=== PATIENT | male | born 1960 | race Caucasian/White ===

== ENCOUNTER → 2017-02-27 | Outpatient (CLI) | payer MEDICAID, SELFPAY ==
[2017-02-27 08:13] LABS: BASO % 0.7 % (0.0-1.0); EOS # 0.2 K/mm3 (0.0-0.50); LYMPH # 2.1 K/mm3 (1.5-4.5); LYMPH % 26.2 % (24.0-44.0); MEAN CORPUSCULAR HEMOGLOBIN 31.3 pg (27.0-33.0); MEAN CORPUSCULAR HGB CONC 32.7 g/dl (32.0-36.5); MEAN CORPUSCULAR VOLUME 95.8 fl (80.0-96.0); MONO # 0.4 K/mm3 (0.0-0.8); MONO % 5.7 % (0.0-5.0); NEUTROPHILS # 4.7 K/mm3 (1.8-7.7); NEUTROPHILS % 63.5 % (36.0-66.0); WHITE BLOOD COUNT 7.5 K/mm3 (4.0-10.0)
[2017-02-27 08:39] LABS: ALBUMIN 3.5 GM/DL (3.2-5.2); ALBUMIN/GLOBULIN RATIO 1.13 (1.00-1.93); ALKALINE PHOSPHATASE 78 U/L (45-117); ALT/SGPT 15 U/L (12-78); ANION GAP 6 MEQ/L (8-16); AST/SGOT 11 U/L (15-37); BILIRUBIN,TOTAL 0.4 MG/DL (0.2-1.0); BLOOD UREA NITROGEN 15 MG/DL (7-18); CALCIUM LEVEL 8.4 MG/DL (8.5-10.1); CARBON DIOXIDE LEVEL 30 MEQ/L (21-32); CHLORIDE LEVEL 104 MEQ/L (98-107); CHOLESTEROL LEVEL 151 MG/DL (<200); CREATININE FOR GFR 1.05 MG/DL (0.70-1.30); GLOMERULAR FILTRATION RATE > 60.0 (>56); GLUCOSE, FASTING 92 MG/DL (70-105); POTASSIUM SERUM 4.6 MEQ/L (3.5-5.1); SODIUM LEVEL 140 MEQ/L (136-145); TOTAL PROTEIN 6.6 GM/DL (6.4-8.2); TRIGLYCERIDES LEVEL 72 MG/DL (<150)
--- NOTE | 2017-02-27 12:40 | REP ---
CAROTID ULTRASOUND: Real-time ultrasound evaluation and duplex Doppler interrogation of the extracranial carotid vasculature is performed. There is mild to moderate plaquing and narrowing in both carotid bulbs extending into the internal and external carotid arteries. Luminal narrowing is less than 50%. There is no evidence of hemodynamically significant stenosis of either internal carotid artery. Normal flow velocities are seen. The vertebral arteries demonstrate normal direction of flow. RIGHT LEFT Peak systolic velocity ICA 86.4 cm/s 60 cm/s End diastolic velocity ICA 36 cm/s 22.5 cm/s Peak systolic velocity CCA 79.2 cm/s 96.4 cm/s Peak systolic velocity ECA 70.1 cm/s 100.9 cm/s ICA/CCA ratio 1.09 0.62 IMPRESSION: Bilateral luminal narrowing of the internal carotid arteries less than 50%. No evidence of hemodynamically significant stenosis. Signed by Fitz Corley MD 02/27/2017 12:31 P
== END ==
LOC: M LAB 07:26
PROVIDERS: ATTEND Physician Assistant Medical
DX: I10 Essential (primary) hypertension (principal); R01.1 Cardiac murmur, unspecified

== ENCOUNTER → 2017-04-07 | Outpatient (CLI) | payer OTHER | LOC: M ADAMS 09:10 | PROVIDERS: ATTEND Physician Assistant Medical | DX: I10 Essential (primary) hypertension (principal) ==

== ENCOUNTER → 2017-04-07 | Outpatient (CLI) | payer OTHER ==
[2017-04-07 13:20] LABS: ANION GAP 5 MEQ/L (8-16); BLOOD UREA NITROGEN 11 MG/DL (7-18); CALCIUM LEVEL 8.6 MG/DL (8.5-10.1); CARBON DIOXIDE LEVEL 32 MEQ/L (21-32); CHLORIDE LEVEL 104 MEQ/L (98-107); CREATININE FOR GFR 0.95 MG/DL (0.70-1.30); GLOMERULAR FILTRATION RATE > 60.0 (>56); GLUCOSE, FASTING 85 MG/DL (70-105); POTASSIUM SERUM 4.5 MEQ/L (3.5-5.1); SODIUM LEVEL 141 MEQ/L (136-145)
== END ==
LOC: M ADAMS 09:10
PROVIDERS: ATTEND Physician Assistant Medical
DX: I10 Essential (primary) hypertension (principal)

== ENCOUNTER → 2017-07-04 | Outpatient (REF) | payer OTHER ==
[2017-07-04 13:13] LABS: BASO % 0.3 % (0.0-1.0); EOS # 0.1 K/mm3 (0.0-0.50); EOS % 0.7 % (0.0-3.0); LYMPH # 1.7 K/mm3 (1.5-4.5); LYMPH % 11.5 % (24.0-44.0); MEAN CORPUSCULAR HEMOGLOBIN 31.9 pg (27.0-33.0); MEAN CORPUSCULAR HGB CONC 33.3 g/dl (32.0-36.5); MEAN CORPUSCULAR VOLUME 95.9 fl (80.0-96.0); MONO # 0.7 K/mm3 (0.0-0.8); MONO % 4.8 % (0.0-5.0); NEUTROPHILS # 11.5 K/mm3 (1.8-7.7); RED CELL DISTRIBUTION WIDTH 13.4 % (11.5-14.5); WHITE BLOOD COUNT 14.1 K/mm3 (4.0-10.0)
[2017-07-04 13:28] LABS: ALBUMIN 3.9 GM/DL (3.2-5.2); ALKALINE PHOSPHATASE 57 U/L (45-117); ALT/SGPT 21 U/L (12-78); ANION GAP 8 MEQ/L (8-16); AST/SGOT 9 U/L (15-37); BILIRUBIN,TOTAL 1.2 MG/DL (0.2-1.0); BLOOD UREA NITROGEN 19 MG/DL (7-18); CALCIUM LEVEL 8.7 MG/DL (8.5-10.1); CARBON DIOXIDE LEVEL 30 MEQ/L (21-32); CHLORIDE LEVEL 103 MEQ/L (98-107); CHOLESTEROL LEVEL 148 MG/DL (<200); CREATININE FOR GFR 1.04 MG/DL (0.70-1.30); GLOMERULAR FILTRATION RATE > 60.0 (>56); GLUCOSE, FASTING 87 MG/DL (70-105); POTASSIUM SERUM 4.7 MEQ/L (3.5-5.1); SODIUM LEVEL 141 MEQ/L (136-145); TOTAL PROTEIN 6.9 GM/DL (6.4-8.2); TRIGLYCERIDES LEVEL 75 MG/DL (<150)
== END ==
LOC: M LABDRWAD 12:19
PROVIDERS: ATTEND Physician Assistant Medical
DX: R73.9 Hyperglycemia, unspecified (principal)

== ENCOUNTER → 2018-03-12 | Outpatient (CLI) | payer OTHER | LOC: M RAD 07:36 | DX: R10.13 Epigastric pain (principal) | CPT/HCPCS: 76705 ==

== ENCOUNTER 2018-10-11 13:27 | Emergency (ER) | payer MEDICAID, OTHER ==
[~2018-10-11] VITALS: Ht 165.1 cm; Wt 68.2 kg
[2018-10-11] MEDS ORDERED: KETOROLAC 60 MG/2 ML VIAL (J1885) IM ONE (14:30)
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
[2018-10-11] MEDS ORDERED: CYCL10TA PO (15:32)
[2018-10-11] MEDS ORDERED: NAPR-49 PO (15:32)
[2018-10-11 15:40] VITALS: BP 173/94
== END 2018-10-11 15:42 | disposition home or self-care (01) ==
LOC: M ED 13:27
DX: S60.221A Contusion of right hand, initial encounter (principal); S40.011A Contusion of right shoulder, initial encounter; S16.1XXA Strain of muscle, fascia and tendon at neck level, initial encounter; S29.012A Strain of muscle and tendon of back wall of thorax, initial encounter; S39.012A Strain of muscle, fascia and tendon of lower back, initial encounter; W01.0XXA Fall on same level from slipping, tripping and stumbling without subsequent striking against object, initial encounter; Y92.410 Unspecified street and highway as the place of occurrence of the external cause
CPT/HCPCS: 72125; 72128; 72131; 73030; 73130; 96372; 99284; J1885

== ENCOUNTER 2019-03-02 10:08 | Emergency (ER) | payer OTHER ==
[~2019-03-02] VITALS: Ht 165.1 cm; Wt 68.2 kg
[~2019-03-02 10:08] MED LIST: CYCL10TA PO; NAPR-837 PO
[2019-03-02 11:21] LABS: BASO % 0.5 % (0.0-1.0); EOS # 0.1 10^3/uL (0.0-0.50); HEMATOCRIT 44.3 % (42.0-52.0); HEMOGLOBIN 14.9 g/dl (13.5-17.5); LYMPH # 3.2 10^3/uL (1.5-4.5); LYMPH % 39.8 % (24.0-44.0); MEAN CORPUSCULAR HGB CONC 33.6 g/dl (32.0-36.5); MEAN CORPUSCULAR VOLUME 95.1 fl (80.0-96.0); MONO # 0.6 10^3/uL (0.0-0.8); MONO % 7.3 % (0.0-5.0); NEUTROPHILS # 4.1 10^3/uL (1.8-7.7); NEUTROPHILS % 51.2 % (36.0-66.0); PLATELET COUNT, AUTOMATED 317 10^3/uL (150-450); RED BLOOD COUNT 4.66 10^6/uL (4.30-6.10); WHITE BLOOD COUNT 8.1 10^3/uL (4.0-10.0)
--- NOTE | 2019-03-02 11:39 | REP ---
CT of the abdomen pelvis without IV or bowel contrast for flank pain: There are no comparisons. The visualized lung luna are unremarkable. The unenhanced hepatic parenchyma, gallbladder, pancreas and spleen are normal size and unremarkable. The adrenals are unremarkable. There are no renal calculi. There is no hydronephrosis. There is no perinephric stranding. There are no ureteral calculi. No hydroureter. There are no bladder calculi. There is calcified atheroma in the abdominal aorta, celiac artery and superior mesenteric artery. There is no retroperitoneal adenopathy or mass. There is no bowel distension or obstruction. The mesentery is unremarkable. Pelvis: The appendix is unremarkable. The bladder is unremarkable. There is no ascites or adenopathy. The pelvic bowel loops are unremarkable. There is bilateral L5 spondylolysis without spondylolisthesis. There is moderate degenerative disc disease throughout the lumbar spine. Impression: There is no hydronephrosis or perinephric stranding. There are no renal, ureteral or bladder calculi. The study is insensitive for renal masses in the absence of IV contrast. There is calcified atheroma in the abdominal aorta, celiac artery, superior mesenteric artery, iliac arteries and femoral arteries. There is bilateral L5 spondylolysis without spondylolisthesis. There is moderate degenerative disc disease throughout the lumbar spine. Electronically Signed by Fitz Rdz MD 03/02/2019 11:31 A
[2019-03-02 11:52] LABS: ALBUMIN 4.3 GM/DL (3.2-5.2); ALT/SGPT 33 U/L (12-78); BILIRUBIN,TOTAL 0.4 MG/DL (0.2-1.0); BLOOD UREA NITROGEN 11 MG/DL (7-18); CALCIUM LEVEL 9.1 MG/DL (8.5-10.1); CARBON DIOXIDE LEVEL 32 MEQ/L (21-32); CHLORIDE LEVEL 104 MEQ/L (98-107); CREATININE FOR GFR 0.97 MG/DL (0.70-1.30); GLOMERULAR FILTRATION RATE > 60.0 (>56); GLUCOSE, FASTING 103 MG/DL (70-100); LIPASE 132 U/L (73-393); POTASSIUM SERUM 3.9 MEQ/L (3.5-5.1); SODIUM LEVEL 140 MEQ/L (136-145); TOTAL PROTEIN 7.8 GM/DL (6.4-8.2)
[2019-03-02] MEDS ORDERED: ZANA4TAB PO (12:08)
[2019-03-02] MEDS ORDERED: MOBI4TAB PO (12:08)
[2019-03-02 12:12] VITALS: BP 170/92
== END 2019-03-02 12:18 | disposition home or self-care (01) ==
LOC: M ED 10:08
DX: I70.90 Unspecified atherosclerosis (principal); M51.36 Other intervertebral disc degeneration, lumbar region; M43.06 Spondylolysis, lumbar region

== ENCOUNTER → 2020-05-08 | Outpatient (CLI) | payer SELFPAY ==
[~2020-05-08] MED LIST changes: +CYCL-707 PO; -CYCL10TA PO; +MOBI4TAB PO; +ZANA4TAB PO
== END ==
LOC: M LABSMTC 14:03
PROVIDERS: ATTEND Pediatrics
DX: Z20.828 Contact with and (suspected) exposure to other viral communicable diseases (principal); Z11.59 Encounter for screening for other viral diseases

== ENCOUNTER 2020-11-18 07:05 | Emergency (ER) | payer OTHER ==
[~2020-11-18] VITALS: Ht 165.1 cm; Wt 69.4 kg
--- OUTSIDE RECORDS SUMMARY | 2020-11-18 07:12 | CCD ---
Author Author [facility] Address Unknown Phone Unavailable Support Name Relationship Address Phone UNEMPLOYED Next Of Kin Unknown UE Next Of Kin Unknown Unavailable DISABLED Next Of Kin Unknown Unavailable Becky AC Next Of Kin [address] [place] [address] [place] ECON [address] [place] [address] Unavailable Re-disclosure Warning The records that you are about to access may contain information from federally-assisted alcohol or drug abuse programs. If such information is present, then the following federally mandated warning applies: This information has been disclosed to you from records protected by federal confidentiality rules (42 CFR part 2). The federal rules prohibit you from making any further disclosure of this information unless further disclosure is expressly permitted by the written consent of the person to whom it pertains or as otherwise permitted by 42 CFR part 2. A general authorization for the release of medical or other information is NOT sufficient for this purpose. The Federal rules restrict any use of the information to criminally investigate or prosecute any alcohol or drug abuse patient.The records that you are about to access may contain highly sensitive health information, the redisclosure of which is protected by Article 27-F of the [facility] Public Health law. If you continue you may have access to information: Regarding HIV / AIDS; Provided by facilities licensed or operated by the [facility] Office of Mental Health; or Provided by the [facility] Office for People With Developmental Disabilities. If such information is present, then the following [facility] mandated warning applies: This information has been disclosed to you from confidential records which are protected by state law. State law prohibits you from making any further disclosure of this information without the specific written consent of the person to whom it pertains, or as otherwise permitted by law. Any unauthorized further disclosure in violation of state law may result in a fine or fci sentence or both. A general authorization for the release of medical or other information is NOT sufficient authorization for further disc losure. Insurance Providers Payer name Policy type / Coverage type Policy ID Covered constitution party ID Covered constitution party's relationship to lechuga Policy Lechuga Plan Information SELF PAY ONLY [id number] SP [id number] [facility] PLAN [facility] [id number] [facility]-Medicaid [id number] [facility]-Medicaid [id number] [facility] COMMUNITY PLAN [facility] [id number] SP [id number] [facility]-Medicaid [id number] [facility]-Medicaid [id number] [facility]) O [id number] S [id number] MEDICAID [id number] SP [id number] [facility] PLAN [facility] [id number] SP [id number] [employer] [facility]([facility]) O [id number] S [id number] MEDICAID M [id number] S [id number] SELF PAY UNAVAILABLE SP UNAVAILA BLE MEDICAID [id number] SP [id number] Results ID Date Data Source [id number] 05/08/2020 12:00:00 AM EDT [facility] Name Value Range Interpretation Code Description Data Opal rce(s) Supporting Document(s) 2019-nCoV RNA XXX AVRIL+probe-Imp [facility] This lab was ordered by [facility] and reported by [email or web address] Procedure
[2020-11-18] MEDS ORDERED: MORPHINE 2 MG/ML 1ML VIAL (J2270) IV ONE (07:30)
[2020-11-18] MEDS ORDERED: NORCO, ANEXSIA 5/325MG TABLET (HYDROcodone/ACETAMINOPHEN) PO ONE (07:45)
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
--- NOTE | 2020-11-18 09:05 | REP ---
INDICATION: left flank pain COMPARISON: Comparison CT study March 02, 2019.. TECHNIQUE: Helical scanning is acquired in 4 mm axial images were reformatted. Coronal and sagittal MPR images were generated and reviewed. FINDINGS: Digital preliminary reconditioner radiograph shows moderate stool in the right colon. Some vascular calcification is noted. The lung bases are clear on axial CT images. The liver and spleen are normal in size homogeneous in texture. Normal adrenal glands are observed. No abnormality is visible in the pancreas. The gallbladder is unremarkable. There is heavy vascular calcification in the aorta and its branches. No hydronephrosis or intrarenal calculus is seen on either side. No ureteral stone or bladder calculus is observed. A normal appendix is seen in the right pelvis along the pelvic sidewall. No CT evidence of appendicitis. Prostate contains a few dystrophic calcifications. There are vas deferens calcifications noted bilaterally. There are few loops of air-filled small bowel in the central abdomen. No obstructive lesion is seen. Moderate stool is seen throughout the proximal colon. No abdominal wall defect is seen. No abnormal fluid collection or free air is observed. Bilateral L5 spondylolysis is again seen without significant spondylolisthesis. No bony destructive lesion. IMPRESSION: Moderate colonic stool in the proximal colon. Extensive vascular calcification. Nonspecific small bowel loops. No evidence of obstruction. Normal appendix. No hydronephrosis or urinary tract calculus seen. <Electronically signed by Trung Damon > 11/18/20 0901
[2020-11-18] MEDS ORDERED: LIDO5DIS41 TOP (09:23)
[2020-11-18] MEDS ORDERED: HYDR-4571 PO (09:23)
--- OUTSIDE RECORDS SUMMARY | 2020-11-18 09:40 | CCD ---
Author Author [facility] Organization [facility] Address Unknown Phone Unavailable Support Name Relationship Address Phone [facility] Next Of Kin [place] [phone] UNEMPLOYED Next Of Kin Unknown UE Next Of Kin Unknown Unavailable DISABLED Next Of Kin Unknown Unavailable Becky AC Next Of Kin [address] [place] [address] [place] ECON [address] [place] [address] Unavailable Re-disclosure Warning The records that you [...] is protected by Article 27-F of the [facility] Public Health law. If you continue you may have access to information: Regarding HIV / AIDS; Provided by facilities licensed or operated by the [facility] Office of Mental Health; or Provided by the [facility] Office for People With Developmental Disabilities. If such information is present, then the following [facility] mandated warning applies: This information has been [...] law may result in a fine or residential sentence or both. A general authorization for the release of medical or other information is NOT sufficient authorization for further disc losure. Insurance Providers Payer name Policy type / Coverage type Policy ID Covered green party ID Covered green party's relationship to lechuga Policy Lechuga Plan Information [facility] COMMUN[facility] PLAN [facility] [id number] SP [id number] SELF PAY ONLY [id number] SP [id number] PLAN [facility] [id number] SP [id number] [facility]-Medicaid [id number] [facility]-Medicaid [id number] [facility] PLAN [facility] [id number] SP [id number] [facility]-Medicaid [id number] [facility]-Medicaid [id number] [facility] O [id number] S [id number] MEDICAID [id number] SP [id number] [facility] PLAN [facility] [id number] SP [id number] [facility] O [id number] S [id number] MEDICAID M [id number] S [id number] SELF PAY UNAVAILABLE SP UNAVAILA BLE MEDICAID [id number] SP [id number] Results ID Date Data Source [id number] 05/08/2020 12:00:00 AM EDT [facility] Name Value Range Interpretation Code Description Data Opal rce(s) Supporting Document(s) 2019-nCoV RNA XXX AVRIL+probe-Imp [facility] This lab was ordered by [facility] and reported by [employer] Procedure
[2020-11-18 09:42] VITALS: BP 145/98
== END 2020-11-18 09:43 | disposition home or self-care (01) ==
LOC: M ED 07:05
DX: S20.229A Contusion of unspecified back wall of thorax, initial encounter (principal); W01.0XXA Fall on same level from slipping, tripping and stumbling without subsequent striking against object, initial encounter; Y92.89 Other specified places as the place of occurrence of the external cause

== ENCOUNTER 2021-01-03 10:51 | Emergency (ER) | payer OTHER ==
[~2021-01-03] VITALS: Ht 165.1 cm; Wt 68.1 kg
[~2021-01-03 10:51] MED LIST changes: +HYDR-4571 PO; +LIDO5DIS41 TOP
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
[2021-01-03] MEDS ORDERED: KETOROLAC TROMETHAMINE 10 MG TAB PO ONE (12:30)
[2021-01-03] MEDS ORDERED: methocarbamoL 750 MG TAB PO ONE (12:30)
[2021-01-03 12:55] VITALS: BP 153/88
[2021-01-03] MEDS ORDERED: KETO10TAB PO (13:20)
[2021-01-03] MEDS ORDERED: ROBA750T4 PO (13:20)
== END 2021-01-03 13:33 | disposition home or self-care (01) ==
LOC: M ED 10:51
DX: S13.4XXA Sprain of ligaments of cervical spine, initial encounter (principal); S23.3XXA Sprain of ligaments of thoracic spine, initial encounter; S20.213A Contusion of bilateral front wall of thorax, initial encounter; V49.49XA Driver injured in collision with other motor vehicles in traffic accident, initial encounter; Y92.410 Unspecified street and highway as the place of occurrence of the external cause

== ENCOUNTER 2021-01-05 10:39 | Emergency (ER) | payer OTHER ==
[~2021-01-05] VITALS: Ht 139.7 cm; Wt 68.2 kg
[~2021-01-05 10:39] MED LIST changes: +KETO10TAB PO; +ROBA750T4 PO
[2021-01-05] MEDS ORDERED: MORPHINE 2 MG/ML 1ML VIAL (J2270) IV ONE (11:35)
[2021-01-05] MEDS ORDERED: ONDANSETRON 4MG/2ML VIAL IV ONE (11:35)
[2021-01-05 11:50] LABS: BASO # 0.1 10^3/uL (0.0-0.2); EOS # 0.1 10^3/uL (0.0-0.5); EOS % 1.4 % (0.0-3.0); HEMATOCRIT 41.3 % (42.0-52.0); HEMOGLOBIN 13.5 g/dl (13.5-17.5); LYMPH # 1.9 10^3/uL (1.5-5.0); LYMPH % 33.1 % (24.0-44.0); MEAN CORPUSCULAR HEMOGLOBIN 31.4 pg (27.0-33.0); MEAN CORPUSCULAR HGB CONC 32.7 g/dl (32.0-36.5); MONO # 0.5 10^3/uL (0.0-0.8); MONO % 8.2 % (2.0-8.0); NEUTROPHILS # 3.3 10^3/uL (1.5-8.5); NEUTROPHILS % 56.1 % (36.0-66.0); PLATELET COUNT, AUTOMATED 313 10^3/uL (150-450); WHITE BLOOD COUNT 5.9 10^3/uL (4.0-10.0)
[2021-01-05] MEDS ORDERED: ISOVUE-370 76% 100ML VIAL As Ordered ONE (11:54)
[2021-01-05 12:52] LABS: BILIRUBIN,DIRECT 0.2 MG/DL (0.0-0.2); BILIRUBIN,TOTAL 0.7 MG/DL (0.2-1.0); TOTAL PROTEIN 6.7 GM/DL (6.4-8.2)
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
[2021-01-05] MEDS ORDERED: oxyCODONE 5MG TAB PO ONE (13:20)
[2021-01-05] MEDS ORDERED: OXYC-517 PO (14:23)
[2021-01-05 14:51] VITALS: BP 110/74
--- NOTE | 2021-01-07 07:58 | ECGEPIP ---
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
== END 2021-01-05 14:53 | disposition home or self-care (01) ==
LOC: M ED 10:39
DX: S20.219A Contusion of unspecified front wall of thorax, initial encounter (principal); V49.49XA Driver injured in collision with other motor vehicles in traffic accident, initial encounter; Y92.410 Unspecified street and highway as the place of occurrence of the external cause; K85.90 Acute pancreatitis without necrosis or infection, unspecified
CPT/HCPCS: 71275; 80047; 80076; 83615; 83690; 84484; 85025; 93005; 96374; 96375; 99284; J2270; J2405; Q9967

== ENCOUNTER → 2021-01-07 | Outpatient (CLI) | payer OTHER ==
[~2021-01-07] MED LIST changes: +HYDR-3713 PO; +OXYC-517 PO; +ZOFR4TAB16 PO
[2021-01-07 10:19] LABS: BASO % 0.5 % (0.0-1.0); EOS # 0.1 10^3/uL (0.0-0.5); EOS % 0.8 % (0.0-3.0); HEMATOCRIT 43.1 % (42.0-52.0); HEMOGLOBIN 13.9 g/dl (13.5-17.5); LYMPH # 2.4 10^3/uL (1.5-5.0); LYMPH % 31.9 % (24.0-44.0); MEAN CORPUSCULAR HGB CONC 32.3 g/dl (32.0-36.5); MEAN CORPUSCULAR VOLUME 96.2 fl (80.0-96.0); MONO # 0.5 10^3/uL (0.0-0.8); MONO % 6.2 % (2.0-8.0); NEUTROPHILS # 4.6 10^3/uL (1.5-8.5); NEUTROPHILS % 60.3 % (36.0-66.0); PLATELET COUNT, AUTOMATED 353 10^3/uL (150-450); RED BLOOD COUNT 4.48 10^6/uL (4.30-6.10); WHITE BLOOD COUNT 7.6 10^3/uL (4.0-10.0)
[2021-01-07 10:42] LABS: BILIRUBIN,DIRECT 0.2 MG/DL (0.0-0.2); BILIRUBIN,TOTAL 0.7 MG/DL (0.2-1.0)
== END ==
LOC: M LAB 09:41
PROVIDERS: ATTEND Emergency Medicine
DX: K85.90 Acute pancreatitis without necrosis or infection, unspecified (principal)

== ENCOUNTER 2021-01-09 12:05 | Emergency (ER) | payer OTHER ==
[~2021-01-09] VITALS: Ht 165.1 cm; Wt 68.2 kg
[~2021-01-09 12:05] MED LIST changes: -HYDR-3713 PO; -ZOFR4TAB16 PO
[2021-01-09 12:09] VITALS: BP 166/98
[2021-01-09 13:11] LABS: BASO # 0.1 10^3/uL (0.0-0.2); BASO % 0.6 % (0.0-1.0); EOS # 0.1 10^3/uL (0.0-0.5); EOS % 0.8 % (0.0-3.0); HEMATOCRIT 44.2 % (42.0-52.0); HEMOGLOBIN 14.8 g/dl (13.5-17.5); LYMPH # 2.4 10^3/uL (1.5-5.0); LYMPH % 28.4 % (24.0-44.0); MEAN CORPUSCULAR HGB CONC 33.5 g/dl (32.0-36.5); MEAN CORPUSCULAR VOLUME 95.7 fl (80.0-96.0); MONO # 0.6 10^3/uL (0.0-0.8); MONO % 6.8 % (2.0-8.0); NEUTROPHILS # 5.3 10^3/uL (1.5-8.5); NEUTROPHILS % 63.3 % (36.0-66.0); PLATELET COUNT, AUTOMATED 358 10^3/uL (150-450); RED BLOOD COUNT 4.62 10^6/uL (4.30-6.10); WHITE BLOOD COUNT 8.4 10^3/uL (4.0-10.0)
[2021-01-09 13:39] LABS: ALBUMIN 4.5 GM/DL (3.2-5.2); ALT/SGPT 27 U/L (12-78); BILIRUBIN,DIRECT 0.2 MG/DL (0.0-0.2); BILIRUBIN,TOTAL 0.7 MG/DL (0.2-1.0); BLOOD UREA NITROGEN 9 MG/DL (7-18); CALCIUM LEVEL 9.4 MG/DL (8.5-10.1); CARBON DIOXIDE LEVEL 30 MEQ/L (21-32); CHLORIDE LEVEL 104 MEQ/L (98-107); CREATININE FOR GFR 0.87 MG/DL (0.70-1.30); GLOMERULAR FILTRATION RATE > 60.0 (>56); GLUCOSE, FASTING 94 MG/DL (70-100); LIPASE 924 U/L (73-393); POTASSIUM SERUM 4.3 MEQ/L (3.5-5.1); SODIUM LEVEL 139 MEQ/L (136-145); TOTAL PROTEIN 7.5 GM/DL (6.4-8.2)
[2021-01-09] MEDS ORDERED: MORPHINE 4 MG/ML 1ML VIAL/SYRINGE (J2270) IV ONE (14:15)
[2021-01-09] MEDS ORDERED: NS 1,000 ML IV SCH (14:15)
[2021-01-09] MEDS ORDERED: ONDANSETRON 4MG/2ML VIAL IV ONE (14:15)
[2021-01-09] MEDS ORDERED: ISOVUE-370 76% 100ML VIAL As Ordered ONE (14:18)
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
[2021-01-09] MEDS ORDERED: HYDR-3713 PO (16:03)
[2021-01-09] MEDS ORDERED: ZOFR4TAB16 PO (16:03)
--- NOTE | 2021-01-09 20:09 | ECGEPIP ---
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
== END 2021-01-09 16:28 | disposition home or self-care (01) ==
LOC: M ED 12:05
DX: K85.90 Acute pancreatitis without necrosis or infection, unspecified (principal); F17.210 Nicotine dependence, cigarettes, uncomplicated
CPT/HCPCS: 36415; 74177; 80048; 80076; 83690; 85025; 93005; 96361; 96374; 96375; 99284; J2270; J2405; Q9967

== ENCOUNTER → 2021-02-23 | Outpatient (CLI) | payer OTHER ==
[~2021-02-23] MED LIST changes: +HYDR-3713 PO; +ZOFR4TAB16 PO
--- NOTE | 2021-02-23 20:01 | REPVR ---
PROCEDURE INFORMATION: Exam: MR Cervical Spine Without Contrast Exam date and time: 02/23/2021 7:10 PM Age: 60 years old Clinical indication: Neck pain; Additional info: Radiculopathy, cervical region TECHNIQUE: Imaging protocol: Multiplanar magnetic resonance images of the cervical spine without contrast. COMPARISON: 1. CT Spine,cervical w/o contrast 01/03/2021 11:[address] Spine,cervical w/o contrast 10/11/2018 2:27:55 PM FINDINGS: Vertebrae: The alignment of the cervical spine is within normal limits. There is no acute fracture or subluxation. 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 The vertebral body heights are preserved. The bone marrow signal is unremarkable. Spinal cord: Normal. No cord compression. No spinal cord edema or hemorrhage. Spinal epidural space: There is no abnormal epidural fluid collection. Diffuse disc desiccation is present in the cervical spine. C2-C3: The disc height is preserved. No disc herniation, spinal canal stenosis, or neural foraminal stenosis is noted. There is mild osteoarthritis of the facet joints. C3-C4: The disc height is preserved. No disc herniation, spinal canal stenosis, or neural foraminal stenosis is noted. The facet joints are unremarkable. C4-C5: The disc height is preserved. There is a mild central protrusion, fissuring of the anterior and posterior portions of the annulus fibrosus, and endplate spurs projecting anteriorly. The spinal canal and neural foramina are patent. The facet joints are unremarkable. C5-C6: There is mild loss of disc height, a broad-based posterior disc osteophyte complex, left uncovertebral hypertrophy, and endplate spurs projecting anteriorly. There is mild spinal canal stenosis and moderate to severe left neural foraminal stenosis. No right neural foraminal stenosis is noted. The facet joints are unremarkable. C6-C7: There is mild loss of disc height, a broad-based posterior disc osteophyte complex, left uncovertebral hypertrophy, and endplate spurs projecting anteriorly. There is moderate to severe left neural foraminal stenosis. No spinal canal or right neural foraminal stenosis is noted. The facet joints are unremarkable. C7-T1: The disc height is preserved. No disc herniation, spinal canal stenosis, or neural foraminal stenosis is noted. There is moderate osteoarthritis of the left facet joint. T1-T2: Axial imaging was not performed at this level. The disc height is preserved. No disc herniation, spinal canal stenosis, or neural foraminal stenosis is noted. The facet joints are unremarkable. T2-T3: Axial imaging was not performed at this level. The disc height is preserved. No disc herniation, spinal canal stenosis, or neural foraminal stenosis is noted. The facet joints are unremarkable. Soft tissues: Unremarkable. No ligamentous sprain or muscular strain. No paraspinal soft tissue fluid collection. Vertebral arteries: Expected flow voids in the vertebral arteries. IMPRESSION: 1. C2-C3: Mild osteoarthritis of the facet joints. 2. C4-C5: Mild central protrusion, fissuring of the anterior and posterior portions of the annulus fibrosus, and endplate spurs projecting anteriorly. 3. C5-C6: Mild spinal canal stenosis and moderate to severe left neural foraminal stenosis, where there is mild loss of disc height, a broad-based posterior disc osteophyte complex, left uncovertebral hypertrophy, and endplate spurs projecting anteriorly. 4. C6-C7: Moderate to severe left neural foraminal stenosis, where there is mild loss of disc height, a broad-based posterior disc osteophyte complex, left uncovertebral hypertrophy, and endplate spurs projecting anteriorly. 5. C7-T1: Moderate osteoarthritis of the left facet joint. 6. 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 Electronically signed by: Ánegl Emanuel On 02/23/2021 20:01:26 PM
== END ==
LOC: M RAD 17:58
PROVIDERS: ATTEND Orthopaedic Surgery Sports Medicine
DX: M54.12 Radiculopathy, cervical region (principal)

== ENCOUNTER → 2021-04-27 | Outpatient (REF) | payer OTHER ==
[2021-04-27 13:05] LABS: BASO # 0.1 10^3/uL (0.0-0.2); BASO % 0.7 % (0.0-1.0); EOS # 0.1 10^3/uL (0.0-0.5); EOS % 1.4 % (0.0-3.0); HEMATOCRIT 44.4 % (42.0-52.0); HEMOGLOBIN 14.6 g/dl (13.5-17.5); LYMPH # 2.2 10^3/uL (1.5-5.0); LYMPH % 30.5 % (24.0-44.0); MEAN CORPUSCULAR HEMOGLOBIN 30.9 pg (27.0-33.0); MEAN CORPUSCULAR HGB CONC 32.9 g/dl (32.0-36.5); MEAN CORPUSCULAR VOLUME 94.1 fl (80.0-96.0); MONO # 0.5 10^3/uL (0.0-0.8); MONO % 6.9 % (2.0-8.0); NEUTROPHILS # 4.3 10^3/uL (1.5-8.5); NEUTROPHILS % 60.2 % (36.0-66.0); PLATELET COUNT, AUTOMATED 326 10^3/uL (150-450); RED BLOOD COUNT 4.72 10^6/uL (4.30-6.10); WHITE BLOOD COUNT 7.1 10^3/uL (4.0-10.0)
[2021-04-27 13:45] LABS: ALBUMIN 4.2 GM/DL (3.2-5.2); ALT/SGPT 25 U/L (12-78); BILIRUBIN,TOTAL 0.8 MG/DL (0.2-1.0); BLOOD UREA NITROGEN 8 MG/DL (7-18); CALCIUM LEVEL 9.5 MG/DL (8.5-10.1); CARBON DIOXIDE LEVEL 28 MEQ/L (21-32); CHLORIDE LEVEL 106 MEQ/L (98-107); CHOLESTEROL LEVEL 219 MG/DL (<200); CHOLESTEROL RISK RATIO 4.294 (<5); CREATININE FOR GFR 0.98 MG/DL (0.70-1.30); GLOMERULAR FILTRATION RATE > 60.0 (>56); GLUCOSE, FASTING 102 MG/DL (70-100); HDL CHOLESTEROL 51 MG/DL (>40); LDL CHOLESTEROL 148 MG/DL (<100); NON-HDL-C 168 MG/DL; POTASSIUM SERUM 4.6 MEQ/L (3.5-5.1); SODIUM LEVEL 141 MEQ/L (136-145); THYROID STIMULATING HORMONE 0.978 uIU/ML (0.358-3.740); TOTAL PROTEIN 7.3 GM/DL (6.4-8.2); TRIGLYCERIDES LEVEL 98 MG/DL (<150)
== END ==
LOC: M SFHCADAM 10:28
PROVIDERS: ATTEND Physician Assistant Medical
DX: R55 Syncope and collapse (principal); I10 Essential (primary) hypertension; I73.9 Peripheral vascular disease, unspecified

== ENCOUNTER → 2021-05-10 | Outpatient (CLI) | payer MEDICAID, OTHER ==
--- NOTE | 2021-05-10 17:23 | REPVR ---
PROCEDURE INFORMATION: Exam: MR Head Without Contrast Exam date and time: 05/10/2021 9:14 AM Age: 60 years old Clinical indication: Syncope and collapse TECHNIQUE: Imaging protocol: MR of the head without contrast. COMPARISON: CT Head without contrast 01/03/2021 11:35 AM FINDINGS: Brain: Small scattered nonspecific T2/FLAIR hyperintensities of the periventricular and deep subcortical white matter, most likely secondary to chronic small vessel ischemic change. No intracranial hemorrhage or extra-axial fluid collection. No evidence of mass effect or midline shift. No restricted diffusion to suggest acute infarct. Cerebral ventricles: Normal. No ventriculomegaly. Bones/joints: Unremarkable. Paranasal sinuses: Normal as visualized. No acute sinusitis. Mastoid air cells: No mastoid effusion. Orbital cavity: Unremarkable. Soft tissues: Unremarkable. IMPRESSION: 1. No acute intracranial pathology. 2. Chronic findings, as above. Electronically signed by: Mikie Malhotra On 05/10/2021 17:23:22 PM
== END ==
LOC: M PLAIMG 08:33
PROVIDERS: ATTEND Physician Assistant Medical
DX: R93.0 Abnormal findings on diagnostic imaging of skull and head, not elsewhere classified (principal); R55 Syncope and collapse

== ENCOUNTER → 2022-11-08 | Outpatient (REF) | payer MEDICAID, OTHER ==
[2022-11-08 12:53] LABS: BASO % 0.6 % (0.0-1.0); EOS # 0.1 10^3/uL (0.0-0.5); HEMATOCRIT 41.5 % (42.0-52.0); HEMOGLOBIN 13.6 g/dl (13.5-17.5); LYMPH # 1.8 10^3/uL (1.5-5.0); LYMPH % 27.1 % (24.0-44.0); MEAN CORPUSCULAR HEMOGLOBIN 31.9 pg (27.0-33.0); MEAN CORPUSCULAR HGB CONC 32.8 g/dl (32.0-36.5); MEAN CORPUSCULAR VOLUME 97.2 fl (80.0-96.0); MONO # 0.4 10^3/uL (0.0-0.8); MONO % 6.4 % (2.0-8.0); NEUTROPHILS # 4.3 10^3/uL (1.5-8.5); NEUTROPHILS % 64.6 % (36.0-66.0); PLATELET COUNT, AUTOMATED 308 10^3/uL (150-450); RED BLOOD COUNT 4.27 10^6/uL (4.30-6.10); WHITE BLOOD COUNT 6.7 10^3/uL (4.0-10.0)
[2022-11-08 13:07] LABS: HEMOGLOBIN A1c 5.6 % (4.0-6.0)
[2022-11-08 13:31] LABS: ALKALINE PHOSPHATASE 52 U/L (46-116); ALT/SGPT 22 U/L (7.0-40); AST/SGOT 20 U/L (<34); BILIRUBIN,TOTAL 0.8 MG/DL (0.3-1.2); BLOOD UREA NITROGEN 14 MG/DL (9-23); CALCIUM LEVEL 9.1 MG/DL (8.5-10.1); CARBON DIOXIDE LEVEL 29 MMOL/L (20-31); CHLORIDE LEVEL 103 MMOL/L (98-107); CHOLESTEROL LEVEL 165 MG/DL (<200); CHOLESTEROL RISK RATIO 3.26 (<5); GLOMERULAR FILTRATION RATE > 60.0 (>56); GLUCOSE, FASTING 98 MG/DL (60-100); HDL CHOLESTEROL 50.5 MG/DL (>40); LDL CHOLESTEROL 99.3 MG/DL (<100); NON-HDL-C 115 MG/DL; POTASSIUM SERUM 4.6 MMOL/L (3.5-5.1); SODIUM LEVEL 140 MMOL/L (136-145); TOTAL PROTEIN 6.7 G/DL (5.7-8.2); TRIGLYCERIDES LEVEL 76 MG/DL (<150)
[2022-11-08 13:32] LABS: FREE T4 1.02 NG/DL (0.89-1.76); THYROID STIMULATING HORMONE 0.628 uIU/ML (0.55-4.78); TOTAL 25(OH) VITAMIN D 30.9 NG/ML (20.0-100.0)
== END ==
LOC: M LAB REF 12:14
PROVIDERS: ATTEND Nurse Practitioner Family
DX: Z13.228 Encounter for screening for other metabolic disorders (principal); Z79.899 Other long term (current) drug therapy

== ENCOUNTER → 2022-12-10 | Outpatient (REF) | payer OTHER ==
[2022-12-10 17:44] LABS: BASO # 0.1 10^3/uL (0.0-0.2); BASO % 0.7 % (0.0-1.0); EOS # 0.1 10^3/uL (0.0-0.5); EOS % 1.6 % (0.0-3.0); HEMATOCRIT 42.8 % (42.0-52.0); LYMPH # 2.2 10^3/uL (1.5-5.0); LYMPH % 31.2 % (24.0-44.0); MEAN CORPUSCULAR HEMOGLOBIN 31.7 pg (27.0-33.0); MEAN CORPUSCULAR HGB CONC 32.7 g/dl (32.0-36.5); MEAN CORPUSCULAR VOLUME 96.8 fl (80.0-96.0); MONO # 0.6 10^3/uL (0.0-0.8); MONO % 8.2 % (2.0-8.0); PLATELET COUNT, AUTOMATED 303 10^3/uL (150-450); RED BLOOD COUNT 4.42 10^6/uL (4.30-6.10)
[2022-12-10 18:08] LABS: URIC ACID 3.3 MG/DL (3.7-9.2)
[2022-12-10 18:09] LABS: C REACTIVE PROTEIN QUANTITATIV < 0.40 MG/DL (<1.0)
[2022-12-10 18:11] LABS: RHEUMATOID FACTOR QUANT 4.6 IU/ML (<14)
[2022-12-10 18:27] LABS: ERYTHROCYTE SEDIMENTATION RATE 18 mm/hr (0-20)
[2022-12-10 18:48] LABS: ALKALINE PHOSPHATASE 54 U/L (46-116); ALT/SGPT 20 U/L (7.0-40); AST/SGOT 20 U/L (<34); BILIRUBIN,TOTAL 0.6 MG/DL (0.3-1.2); BLOOD UREA NITROGEN 16 MG/DL (9-23); CALCIUM LEVEL 8.6 MG/DL (8.5-10.1); CARBON DIOXIDE LEVEL 30 MMOL/L (20-31); CHLORIDE LEVEL 104 MMOL/L (98-107); GLUCOSE, FASTING 78 MG/DL (60-100); POTASSIUM SERUM 4.7 MMOL/L (3.5-5.1); SODIUM LEVEL 140 MMOL/L (136-145); TOTAL PROTEIN 6.6 G/DL (5.7-8.2)
[2022-12-10 20:05] LABS: CREATININE FOR GFR 0.82 MG/DL (0.70-1.30); GLOMERULAR FILTRATION RATE > 60.0 (>56)
== END ==
LOC: M LAB REF 16:57
PROVIDERS: ATTEND Nurse Practitioner Family
DX: M25.522 Pain in left elbow (principal)

== ENCOUNTER → 2022-12-21 | Outpatient (CLI) | payer OTHER | LOC: M RAD 14:02 | PROVIDERS: ATTEND Nurse Practitioner Family | DX: M19.041 Primary osteoarthritis, right hand (principal); M19.042 Primary osteoarthritis, left hand; M19.022 Primary osteoarthritis, left elbow ==

== ENCOUNTER → 2022-12-30 | Outpatient (REF) | payer OTHER ==
[2022-12-30 18:07] LABS: BASO % 0.6 % (0.0-1.0); EOS # 0.1 10^3/uL (0.0-0.5); EOS % 1.6 % (0.0-3.0); HEMATOCRIT 41.6 % (42.0-52.0); HEMOGLOBIN 13.7 g/dl (13.5-17.5); LYMPH # 2.1 10^3/uL (1.5-5.0); LYMPH % 31.7 % (24.0-44.0); MEAN CORPUSCULAR HEMOGLOBIN 31.5 pg (27.0-33.0); MEAN CORPUSCULAR HGB CONC 32.9 g/dl (32.0-36.5); MEAN CORPUSCULAR VOLUME 95.6 fl (80.0-96.0); MONO # 0.6 10^3/uL (0.0-0.8); MONO % 8.6 % (2.0-8.0); NEUTROPHILS # 3.9 10^3/uL (1.5-8.5); NEUTROPHILS % 57.5 % (36.0-66.0); PLATELET COUNT, AUTOMATED 303 10^3/uL (150-450); RED BLOOD COUNT 4.35 10^6/uL (4.30-6.10); WHITE BLOOD COUNT 6.7 10^3/uL (4.0-10.0)
[2022-12-30 18:39] LABS: LIPASE 46 U/L (12-53)
[2022-12-30 18:42] LABS: ALBUMIN 4.2 G/DL (3.2-5.2); ALKALINE PHOSPHATASE 52 U/L (46-116); ALT/SGPT 22 U/L (7.0-40); AST/SGOT 17 U/L (<34); BILIRUBIN,TOTAL 0.5 MG/DL (0.3-1.2); BLOOD UREA NITROGEN 16 MG/DL (9-23); CALCIUM LEVEL 9.2 MG/DL (8.3-10.6); CARBON DIOXIDE LEVEL 31 MMOL/L (20-31); CHLORIDE LEVEL 104 MMOL/L (98-107); CREATININE FOR GFR 0.87 MG/DL (0.70-1.30); GLOMERULAR FILTRATION RATE > 60.0 (>49); GLUCOSE, FASTING 87 MG/DL (74-106); POTASSIUM SERUM 4.7 MMOL/L (3.5-5.1); SODIUM LEVEL 140 MMOL/L (136-145); TOTAL PROTEIN 6.7 G/DL (5.7-8.2)
== END ==
LOC: M LAB REF 16:04
PROVIDERS: ATTEND Nurse Practitioner Family
DX: R10.9 Unspecified abdominal pain (principal)

== ENCOUNTER → 2023-01-15 | Outpatient (CLI) | payer OTHER ==
[~2023-01-15] MED LIST changes: +ISOVUE-370 76% 100ML VIAL As Ordered ONE
== END ==
LOC: M RAD 08:39
PROVIDERS: ATTEND Nurse Practitioner Family
DX: R10.9 Unspecified abdominal pain (principal)
CPT/HCPCS: 74174; Q9967

== ENCOUNTER → 2023-10-15 | Outpatient (REF) | payer OTHER ==
[~2023-10-15] MED LIST changes: -ISOVUE-370 76% 100ML VIAL As Ordered ONE
[2023-10-15 13:53] LABS: BASO % 0.4 % (0.0-1.0); EOS # 0.1 10^3/uL (0.0-0.5); HEMATOCRIT 43.4 % (42.0-52.0); HEMOGLOBIN 14.3 g/dl (13.5-17.5); LYMPH # 1.9 10^3/uL (1.5-5.0); LYMPH % 27.5 % (24.0-44.0); MEAN CORPUSCULAR HEMOGLOBIN 31.6 pg (27.0-33.0); MEAN CORPUSCULAR HGB CONC 32.9 g/dl (32.0-36.5); MEAN CORPUSCULAR VOLUME 95.8 fl (80.0-96.0); MONO # 0.6 10^3/uL (0.0-0.8); MONO % 8.5 % (2.0-8.0); NEUTROPHILS # 4.3 10^3/uL (1.5-8.5); NEUTROPHILS % 61.3 % (36.0-66.0); PLATELET COUNT, AUTOMATED 316 10^3/uL (150-450); RED BLOOD COUNT 4.53 10^6/uL (4.30-6.10); WHITE BLOOD COUNT 6.9 10^3/uL (4.0-10.0)
[2023-10-15 14:01] LABS: ALBUMIN 4.1 G/DL (3.2-5.2); ALKALINE PHOSPHATASE 68 U/L (46-116); ALT/SGPT 21 U/L (7.0-40); AST/SGOT 18 U/L (<34); BILIRUBIN,TOTAL 0.9 MG/DL (0.3-1.2); BLOOD UREA NITROGEN 12 MG/DL (9-23); CALCIUM LEVEL 9.4 MG/DL (8.3-10.6); CARBON DIOXIDE LEVEL 31 MMOL/L (20-31); CHLORIDE LEVEL 103 MMOL/L (98-107); CREATININE FOR GFR 0.89 MG/DL (0.70-1.30); GLOMERULAR FILTRATION RATE > 60.0 (>49); GLUCOSE, FASTING 90 MG/DL (74-106); POTASSIUM SERUM 4.5 MMOL/L (3.5-5.1); SODIUM LEVEL 140 MMOL/L (136-145); TOTAL PROTEIN 6.8 G/DL (5.7-8.2)
== END ==
LOC: M LAB REF 12:22
PROVIDERS: ATTEND Nurse Practitioner Family
DX: R10.9 Unspecified abdominal pain (principal)

== ENCOUNTER 2024-02-09 11:48 | Day surgery (SDC) | payer OTHER ==
[~2024-02-09] VITALS: Ht 165.1 cm; Wt 68.9 kg
[~2024-02-09 11:48] MED LIST changes: +LIDOCAINE 2% 100MG/5ML SDV (FOR ANES.) As Ordered ONE; +LISI10TA22 PO; +PANT40TA29 PO; +propofoL 200 MG/20 ML VIAL As Ordered ONE
[2024-02-09] MEDS: NS 1,000 ML IV ONE (12:32)
[2024-02-09] MEDS ORDERED: fentaNYL 100 MCG/2 ML INJECTION As Ordered ONE (12:38)
[2024-02-09 13:31] VITALS: TEMP 96.8
[2024-02-09 13:49] VITALS: BP 138/78; O2SAT 98
== END 2024-02-09 13:58 | disposition home or self-care (01) ==
LOC: M OPP 11:48
PROVIDERS: ATTEND Internal Medicine Gastroenterology
DX: Z12.11 Encounter for screening for malignant neoplasm of colon (principal); K63.5 Polyp of colon; K64.8 Other hemorrhoids; K22.89 Other specified disease of esophagus; R10.13 Epigastric pain; I10 Essential (primary) hypertension; Z87.891 Personal history of nicotine dependence; Z79.899 Other long term (current) drug therapy; Z91.048 Other nonmedicinal substance allergy status
CPT/HCPCS: 43239; 45385; 88305; J3010

== ENCOUNTER → 2024-09-21 | Outpatient (REF) | payer OTHER ==
[~2024-09-21] MED LIST changes: -LIDOCAINE 2% 100MG/5ML SDV (FOR ANES.) As Ordered ONE; -propofoL 200 MG/20 ML VIAL As Ordered ONE
[2024-09-21 13:47] LABS: BLOOD UREA NITROGEN 17 MG/DL (9-23); CALCIUM LEVEL 9.6 MG/DL (8.3-10.6); CARBON DIOXIDE LEVEL 30 MMOL/L (20-31); CHLORIDE LEVEL 104 MMOL/L (98-107); CHOLESTEROL LEVEL 188 MG/DL (<200); CHOLESTEROL RISK RATIO 4.23 (<5); CREATININE FOR GFR 0.91 MG/DL (0.70-1.30); GLOMERULAR FILTRATION RATE > 60.0 (>49); GLUCOSE, FASTING 143 MG/DL (74-106); HDL CHOLESTEROL 44.4 MG/DL (>40); LDL CHOLESTEROL 126.2 MG/DL (<100); NON-HDL-C 143.6 MG/DL; POTASSIUM SERUM 4.4 MMOL/L (3.5-5.1); SODIUM LEVEL 139 MMOL/L (136-145); TRIGLYCERIDES LEVEL 87 MG/DL (<150)
[2024-09-21 13:48] LABS: PSA SCREENING 1.77 NG/ML (< 4.00)
[2024-09-21 13:53] LABS: THYROID STIMULATING HORMONE 0.827 uIU/ML (0.55-4.78)
[2024-09-21 15:09] LABS: HEMOGLOBIN A1c 5.8 % (4.0-6.0)
== END ==
LOC: M LAB REF 12:19
PROVIDERS: ATTEND Nurse Practitioner Family
DX: Z12.5 Encounter for screening for malignant neoplasm of prostate (principal); Z13.6 Encounter for screening for cardiovascular disorders; Z13.228 Encounter for screening for other metabolic disorders; I10 Essential (primary) hypertension

== ENCOUNTER → 2024-10-01 | Outpatient (CLI) | payer BC | LOC: M RAD 12:51 | PROVIDERS: ATTEND Nurse Practitioner Family | DX: M54.16 Radiculopathy, lumbar region (principal) ==

== ENCOUNTER → 2024-10-05 | Outpatient (CLI) | payer BC, OTHER | LOC: M PLAIMG 08:11 | PROVIDERS: ATTEND Nurse Practitioner Family | DX: M54.16 Radiculopathy, lumbar region (principal) ==

== ENCOUNTER 2024-11-12 11:52 | Emergency (ER) | payer BC ==
[~2024-11-12] VITALS: Ht 165.1 cm; Wt 68.6 kg
[2024-11-12 11:56] VITALS: TEMP 99
[2024-11-12] MEDS ORDERED: TRAM50TA2 (12:23)
[2024-11-12] MEDS ORDERED: GABA-1171 (12:23)
[2024-11-12 15:00] VITALS: BP 128/80
[2024-11-12 15:07] VITALS: O2SAT 95
[2024-11-12] MEDS ORDERED: diazePAM 5MG TABLET PO ONE (15:45)
[2024-11-12] MEDS ORDERED: KETOROLAC 30 MG/ML 1ML VIAL IV ONE (15:45)
[2024-11-12] MEDS: ACETAMINOPHEN 500 MG TAB PO ONE (16:12)
[2024-11-12] MEDS: predniSONE 20 MG TAB PO ONE (16:12)
[2024-11-12] MEDS: LIDOCAINE 5% (LIDODERM) PATCH TD ONE (16:12)
[2024-11-12] MEDS: methocarbamoL 500 MG TAB PO ONE (16:12)
[2024-11-12] MEDS ORDERED: MEDR4PAK PO (17:07)
[2024-11-12] MEDS ORDERED: METH-1165 PO (17:07)
== END 2024-11-12 17:12 | disposition home or self-care (01) ==
LOC: M ED 11:52
DX: M54.42 Lumbago with sciatica, left side (principal); M51.360 Other intervertebral disc degeneration, lumbar region with discogenic back pain only; I10 Essential (primary) hypertension; F17.210 Nicotine dependence, cigarettes, uncomplicated; Z91.048 Other nonmedicinal substance allergy status; Z79.899 Other long term (current) drug therapy
CPT/HCPCS: 72110; 73502; 93971; 99284; J7512

== ENCOUNTER → 2024-11-30 | Outpatient (CLI) | payer BC ==
[~2024-11-30] MED LIST changes: +GABA-1171; +MEDR4PAK PO; +METH-1165 PO; +TRAM50TA2
== END ==
LOC: M RAD 11:01
PROVIDERS: ATTEND Nurse Practitioner Family
DX: M48.062 Spinal stenosis, lumbar region with neurogenic claudication (principal); R20.9 Unspecified disturbances of skin sensation

== ENCOUNTER → 2024-12-16 | Outpatient (REF) | payer BC ==
[2024-12-16 18:42] LABS: BASO # 0.1 10^3/uL (0.0-0.2); BASO % 0.7 % (0.0-1.0); EOS # 0.1 10^3/uL (0.0-0.5); EOS % 1.5 % (0.0-3.0); HEMOGLOBIN 12.5 g/dl (13.5-17.5); LYMPH # 2.3 10^3/uL (1.5-5.0); LYMPH % 33.3 % (24.0-44.0); MEAN CORPUSCULAR HEMOGLOBIN 31.6 pg (27.0-33.0); MEAN CORPUSCULAR HGB CONC 32.9 g/dl (32.0-36.5); MEAN CORPUSCULAR VOLUME 96.2 fl (80.0-96.0); MONO # 0.6 10^3/uL (0.0-0.8); MONO % 8.5 % (2.0-8.0); NEUTROPHILS # 3.8 10^3/uL (1.5-8.5); NEUTROPHILS % 55.9 % (36.0-66.0); PLATELET COUNT, AUTOMATED 376 10^3/uL (150-450); RED BLOOD COUNT 3.95 10^6/uL (4.30-6.10); WHITE BLOOD COUNT 6.9 10^3/uL (4.0-10.0)
[2024-12-16 18:44] LABS: ALBUMIN 4.1 G/DL (3.2-5.2); ALKALINE PHOSPHATASE 61 U/L (40-129); ALT/SGPT 31 U/L (7.0-40); AST/SGOT 21 U/L (<34); BILIRUBIN,DIRECT 0.2 MG/DL (<0.4); BILIRUBIN,TOTAL 0.7 MG/DL (0.3-1.2); C REACTIVE PROTEIN QUANTITATIV < 0.50 MG/DL (<1.0); CHOLESTEROL LEVEL 151 MG/DL (<200); CHOLESTEROL RISK RATIO 3.08 (<5); HDL CHOLESTEROL 48.9 MG/DL (>40); LDL CHOLESTEROL 79.1 MG/DL (<100); NON-HDL-C 102.1 MG/DL; TOTAL PROTEIN 7.2 G/DL (5.7-8.2); TRIGLYCERIDES LEVEL 115 MG/DL (<150)
[2024-12-16 18:55] LABS: ERYTHROCYTE SEDIMENTATION RATE 31 mm/hr (0-20)
== END ==
LOC: M LAB REF 16:56
PROVIDERS: ATTEND Nurse Practitioner Family
DX: I73.9 Peripheral vascular disease, unspecified (principal); R51.9 Headache, unspecified

== ENCOUNTER → 2025-01-06 | Outpatient (CLI) | payer BC | LOC: M RAD 15:12 | PROVIDERS: ATTEND Nurse Practitioner Family | DX: R42 Dizziness and giddiness (principal); I65.23 Occlusion and stenosis of bilateral carotid arteries ==

== ENCOUNTER → 2025-04-28 | Outpatient (CLI) | payer BC ==
[~2025-04-28] MED LIST changes: +LIDO1ADH93 TOP; -LIDO5DIS41 TOP
[2025-04-28 12:58] LABS: BASO # 0.0 10^3/uL (0.0-0.2); BASO % 0.6 % (0.0-1.0); EOS # 0.1 10^3/uL (0.0-0.5); EOS % 1.9 % (0.0-3.0); LYMPH # 1.9 10^3/uL (1.5-5.0); LYMPH % 29.7 % (24.0-44.0); MONO # 0.6 10^3/uL (0.0-0.8); MONO % 9.6 % (2.0-8.0); NEUTROPHILS # 3.7 10^3/uL (1.5-8.5); NEUTROPHILS % 58.0 % (36.0-66.0); PLATELET COUNT, AUTOMATED 272 10^3/uL (150-450)
[2025-04-28 13:12] LABS: INR 0.92
[2025-04-28 13:28] LABS: ALT/SGPT 28 U/L (7.0-40); AST/SGOT 25 U/L (<34); CALCIUM LEVEL 9.1 MG/DL (8.3-10.6); CARBON DIOXIDE LEVEL 29 MMOL/L (20-31); CHLORIDE LEVEL 106 MMOL/L (98-107); CHOLESTEROL LEVEL 127 MG/DL (<200); CHOLESTEROL RISK RATIO 3.17 (<5); CREATININE FOR GFR 0.95 MG/DL (0.70-1.30); GLOMERULAR FILTRATION RATE > 90.0 (>49); LDL CHOLESTEROL 54.8 MG/DL (<100); NON-HDL-C 87.0 MG/DL; POTASSIUM SERUM 4.6 MMOL/L (3.5-5.1); SODIUM LEVEL 144 MMOL/L (136-145); TRIGLYCERIDES LEVEL 161 MG/DL (<150)
== END ==
LOC: M EKG 12:15
PROVIDERS: ATTEND Nurse Practitioner Family
DX: Z01.818 Encounter for other preprocedural examination (principal); I73.9 Peripheral vascular disease, unspecified

== ENCOUNTER 2025-10-07 10:06 | Emergency (ER) | payer BC ==
[~2025-10-07] VITALS: Ht 165.1 cm; Wt 73.7 kg
[2025-10-07] MEDS ORDERED: CLOP75TA2 (10:14)
[2025-10-07] MEDS ORDERED: METH-1165 PO (11:51)
[2025-10-07 11:54] VITALS: BP 149/73; TEMP 97.8; O2SAT 100
== END 2025-10-07 11:57 | disposition home or self-care (01) ==
LOC: M ED 10:06
DX: M54.6 Pain in thoracic spine (principal); M54.50 Low back pain, unspecified; I10 Essential (primary) hypertension; K21.9 Gastro-esophageal reflux disease without esophagitis; Z91.048 Other nonmedicinal substance allergy status; Z79.899 Other long term (current) drug therapy